=== PATIENT | male | born 1965 | race Caucasian/White ===

== ENCOUNTER 2018-11-02 16:27 | Emergency (ER) | payer MEDICAID ==
[~2018-11-02] VITALS: Ht 185.4 cm; Wt 107.0 kg
[2018-11-02 19:06] LABS: BASOPHILS % 0.4 % (0.0-2.0); EOSINOPHILS % 2.2 % (0.0-5.0); HEMATOCRIT. 43.3 % (42.0-52.0); HEMOGLOBIN. 14.7 g/dL (14.0-18.0); LYMPHOCYTES % 28.1 % (20.0-50.0); MEAN CORPUSCULAR HEMOGLOBIN 30.2 pg (28.0-32.0); MEAN CORPUSCULAR VOLUME 89.1 fL (80.0-94.0); MEAN PLATELET VOLUME 11.4 fl (7.4-10.4); MONOCYTES % 6.1 % (2.0-8.0); NEUTROPHILS % 63.2 % (40.0-76.0); PLATELET 232 x1000/uL (130-400); RED BLOOD CELL COUNT 4.86 mill/uL (4.7-6.1); RED CELL DISTRIBUTION WIDTH 14.3 % (11.6-14.6)
[2018-11-02 19:09] LABS: PROTHROMBIN TIME 10.8 sec (9.6-11.0)
[2018-11-02] MEDS ORDERED: BACITRACIN ZINC OINT UDPKT TOP ONE (19:30)
[2018-11-02] MEDS ORDERED: TETANUS, DIPHTHERIA, PERTUSSIS VAC/PF 0.5ML (>7YR OLD) IM ONE (19:30)
[2018-11-02] MEDS ORDERED: HYDROCODONE/ACETAMINOPHEN 5/325MG TABLET PO ONE (19:30)
[2018-11-02 21:42] LABS: CHLORIDE 103 mEq/L (98-107)
[2018-11-02 21:46] LABS: ETHANOL BLOOD < 10 mg/dL
[2018-11-02 22:33] VITALS: BP 130/89
== END 2018-11-02 22:37 | disposition home or self-care (01) ==
LOC: ER 16:27
DX: S00.81XA Abrasion of other part of head, initial encounter (principal); S80.812A Abrasion, left lower leg, initial encounter; S80.811A Abrasion, right lower leg, initial encounter; R07.81 Pleurodynia; E11.9 Type 2 diabetes mellitus without complications; I10 Essential (primary) hypertension; W18.39XA Other fall on same level, initial encounter; Y93.89 Activity, other specified; Y92.091 Bathroom in other non-institutional residence as the place of occurrence of the external cause; Y99.8 Other external cause status
CPT/HCPCS: 36415; 71045; 73610; 80053; 80320; 83880; 84484; 85025; 85610; 85730; 90471; 90715; 93005; 99284; Z7610; G0480